=== PATIENT | female | born 1975 | race Caucasian/White ===

== ENCOUNTER 2020-04-05 00:27 | Outpatient (CLI) | payer SELFPAY | END 2020-04-05 00:28 | disposition EMS.NT | LOC: EMS 00:27 | PROVIDERS: ATTEND Surgery | DX: S01.511A Laceration without foreign body of lip, initial encounter (principal); Y09 Assault by unspecified means ==

== ENCOUNTER 2020-04-05 01:56 | Emergency (ER) | payer OTHER ==
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
[2020-04-05 02:57] VITALS: BP 101/64
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
== END 2020-04-05 03:08 | disposition home or self-care (01) ==
LOC: ED 01:56
DX: S60.221A Contusion of right hand, initial encounter (principal); S00.511A Abrasion of lip, initial encounter; Y04.2XXA Assault by strike against or bumped into by another person, initial encounter; Y92.009 Unspecified place in unspecified non-institutional (private) residence as the place of occurrence of the external cause
CPT/HCPCS: 99282; 99283